=== PATIENT | female | born 1990 | race Caucasian/White ===

== ENCOUNTER 2017-09-15 10:55 | Emergency (ER) | payer BC ==
[2017-09-15] MEDS ORDERED: Ketorolac 30 MG/ML SDV IVPUSH ONE (11:59)
[2017-09-15] MEDS ORDERED: diphenhydrAMINE 50 MG/ML SDV IVPUSH ONE (11:59)
[2017-09-15] MEDS ORDERED: Metoclopramide 10 MG/2 ML SDV IV ONE (11:59)
[2017-09-15] MEDS ORDERED: Ondansetron 4 MG/2 ML SDV IVPUSH ONE (11:59)
--- NOTE | 2017-09-15 11:59 | EDM.PDOC ---
ED HPI GENERAL MEDICAL PROBLEM - General Chief Complaint: Headache Stated Complaint: HEADACHE Time Seen by Provider: 09/15/17 11:57 Source of Information: Reports: Patient History Limitations: Reports: No Limitations - History of Present Illness INITIAL COMMENTS - FREE TEXT/NARRATIVE: HISTORY AND PHYSICAL: History of present illness: Patient is a 27-year-old female who presents to the emergency room with complaints of a frontal migraine headache since 09/12/2017. She states she has taken multiple [id number] products and used the chiropractor to help alleviate her symptoms, has had minimal short term relief. She denies any photophobia, noise sensitivity, nausea, vomiting or change in vision. She denies any recent head injury or trauma. Has no history of migraine headaches. Review of systems: As per history of present illness and below otherwise all systems reviewed and negative. Past medical history: As per history of present illness and as reviewed below otherwise noncontributory. Surgical history: As per history of present illness and as reviewed below otherwise noncontributory. Social history: No reported history of drug or alcohol abuse. Family history: As per history of present illness and as reviewed below otherwise noncontributory. Physical exam: General: Well-developed and well-nourished 27-year-old female. Alert and oriented. Nontoxic appearing and in no acute distress. Will do speak in full sentences without shortness of breath. HEENT: Atraumatic, normocephalic, pupils reactive, negative for conjunctival pallor or scleral icterus, tympanic membranes normal bilaterally, mucous membranes moist, throat clear, neck supple, nontender, trachea midline. Meningeal signs. No trismus or drooling. Lungs: Clear to auscultation, breath sounds equal bilaterally, chest nontender. Heart: S1S2, regular rate and rhythm Abdomen: Soft, nondistended, nontender. Negative for masses or hepatosplenomegaly. Negative for costovertebral tenderness. Pelvis: Stable nontender. Genitourinary: Deferred. Rectal: Deferred. Extremities: Atraumatic, moves all extremities per self, negative for cords or calf pain. Neurovascular unremarkable. Neuro: Awake, alert, oriented. Cranial nerves II through XII unremarkable. Cerebellum unremarkable. Motor and sensory unremarkable throughout. Exam nonfocal. Patient describes her headache as a dull and nagging headache. She denies any trauma or head injuries. She does have her significant other at the bedside. We' ll give the patient some IV medications with discharge to home pending. Diagnostics: N/A Therapeutics: Benadryl, Toradol, Reglan, Zofran, normal saline Impression: Migraine headache Plan: 1. Please take the rest of the day to rest in a quiet dark room. He may use over -the-counter migraine medications if desired. 2. Please follow-up with her primary caregiver in the next 1-2 days. Return to the ED as needed and as discussed. Definitive disposition and diagnosis as appropriate pending reevaluation and review of above. Duration: Day(s): Location: Reports: Head Frontal Headache Pain Score (Numeric/FACES): 6 - Related Data Allergies Allergy/AdvReac Type Severity Reaction Status Date / Time No Known Allergies Allergy Verified 09/15/17 13:15 Home Meds: Home Meds Insulin Aspart [NovoLOG] 0 unit SUBCUT TIDAC #1 pen 03/11/15 [Rx] Social & Family History - Tobacco Use Smoking Status *Q: Unknown Ever Smoked - Alcohol Use Days Per Week of Alcohol Use: 5 Number of Drinks Per Day: 2 Total Drinks Per Week: 10 - Recreational Drug Use Recreational Drug Use: No ED ROS GENERAL - Review of Systems Review Of Systems: ROS reveals no pertinent complaints other than HPI. - Physical Exam Exam: See Below (See dictation) Course - Vital Signs Last Recorded V/S: Last Vital Signs Temp 98.3 F 09/15/17 12:42 Pulse 93 09/15/17 12:42 Resp 16 09/15/17 12:42 BP 135/93 H 09/15/17 12:42 Pulse Ox 100 09/15/17 12:42 - Orders/Labs/Meds Orders: Active Orders 24 hr Category Date Time Status Sodium Chloride 0.9% [Normal Saline] 500 ml Med 09/15/17 12:00 Active IV STAT Medication Orders Sodium Chloride (Normal Saline) 500 mls @ 999 mls/hr IV STAT JANA Last Admin: 09/15/17 12:41 Dose: 999 mls/hr Meds: Medications Generic Name Dose Route Start Last Admin Trade Name Freq PRN Reason Stop Dose Admin Sodium Chloride 500 mls @ 999 mls/hr 09/15/17 12:00 09/15/17 12:41 Normal Saline IV 999 mls/hr STAT JANA Administration Discontinued Medications Generic Name Dose Route Start Last Admin Trade Name Hugo PRN Reason Stop Dose Admin Diphenhydramine HCl 50 mg 09/15/17 11:59 09/15/17 12:47 Benadryl IVPUSH 09/15/17 12:00 50 mg ONETIME ONE Administration Ketorolac Tromethamine 30 mg 09/15/17 11:59 09/15/17 12:47 Toradol IVPUSH 09/15/17 12:00 30 mg ONETIME ONE Administration Metoclopramide HCl 10 mg 09/15/17 11:59 09/15/17 12:47 Reglan IV 09/15/17 12:00 10 mg ONETIME ONE Administration Ondansetron HCl 4 mg 09/15/17 11:59 09/15/17 12:47 Zofran IVPUSH 09/15/17 12:00 4 mg ONETIME ONE Administration Departure - Departure Time of Disposition: 13:05 Disposition: Home, Self-Care 01 Clinical Impression: Migraine - Discharge Information Instructions: Migraine Headache, [id number] Referrals: PCP,None [Primary Care Provider] - Forms: ED Department Discharge Additional Instructions: My general discharge The following information is given to patients seen in the emergency department who are being discharged to home. This information is to outline your options for follow-up care. We provide all patients seen in our emergency department with a follow-up referral. The need for follow-up, as well as the timing and circumstances, are variable depending upon the specifics of your emergency department visit. If you don't have a primary care physician on staff, we will provide you with a referral. We always advise you to contact your personal physician following an emergency department visit to inform them of the circumstance of the visit and for follow-up with them and/or the need for any referrals to a consulting specialist. The emergency department will also refer you to a specialist when appropriate. This referral assures that you have the opportunity for follow-up care with a specialist. All of these measure are taken in an effort to provide you with optimal care, which includes your follow-up. Under all circumstances we always encourage you to contact your private physician who remains a resource for coordinating your care. When calling for follow-up care, please make the office aware that this follow-up is from your recent emergency room visit. If for any reason you are refused follow-up, please contact the [facility] Emergency Department at and asked to speak to the emergency department charge nurse. [facility] [address] [place] [id number] 1. Please take the rest of the day to rest in a quiet dark room. He may use over -the-counter migraine medications if desired. 2. Please follow-up with her primary caregiver in the next 1-2 days. Return to the ED as needed and as discussed. - My Orders Last 24 Hours: My Active Orders 09/15/17 12:00 Sodium Chloride 0.9% [Normal Saline] 500 ml IV STAT - Assessment/Plan Last 24 Hours: My Active Orders 09/15/17 12:00 Sodium Chloride 0.9% [Normal Saline] 500 ml IV STAT
[2017-09-15] MEDS ORDERED: Sodium Chloride 0.9% 500 ML IV SCH (12:00)
[2017-09-15 13:49] VITALS: BP 125/78
== END 2017-09-15 13:48 | disposition home or self-care (01) ==
LOC: MW.ED 10:55
DX: G43.909 Migraine, unspecified, not intractable, without status migrainosus (principal)
CPT/HCPCS: 96361; 96374; 96375; 99284; J1200; J1885; J2405; J2765; J7040; 99283

== ENCOUNTER 2018-12-25 15:58 | Inpatient (IN) | payer OTHER ==
[2018-12-25] MEDS ORDERED: Butorphanol 1 MG/ML SDV IVPUSH PRN (16:15)
[2018-12-25] MEDS ORDERED: Sodium Chloride 0.9% 2.5 ML Syringe FLUSH PRN (16:15)
[2018-12-25] MEDS ORDERED: Sodium Chloride 0.9% 10 ML Syringe FLUSH PRN (16:15)
[2018-12-25] MEDS ORDERED: Oxytocin/0.9 % Sodium Chloride 30 UNIT/500 ML BAG IV SCH ×2 (16:15→17:15)
[2018-12-25] MEDS ORDERED: Sodium Chloride 0.9% 10 ML SDV IV PRN (16:15)
[2018-12-25] MEDS ORDERED: Methylergonovine 0.2 MG/1 ML Amp IM PRN (16:15)
[2018-12-25] MEDS ORDERED: Tranexamic Acid 1,000 MG in Sodium Chloride 0.9% 100 ML IV PRN (16:15)
[2018-12-25] MEDS ORDERED: Lidocaine 1% 50 ML MDV INJECT PRN (16:15)
[2018-12-25] MEDS ORDERED: Misoprostol 200 MCG Tab PO PRN (16:15)
[2018-12-25] MEDS ORDERED: Nalbuphine 10 MG/1 ML Vial IVPUSH PRN (16:15)
[2018-12-25] MEDS ORDERED: Water For Irrigation,Sterile 1,000 ML Container IRR PRN (16:15)
[2018-12-25] MEDS ORDERED: Ampicillin 2 GM in Sodium Chloride 0.9% 100 ML IV ONE (16:15)
[2018-12-25] MEDS ORDERED: Carboprost Tromethamine 250 MCG/1 ML Amp IM PRN (16:15)
[2018-12-25] MEDS: Lactated Ringers 1,000 ML IV SCH (17:00)
[2018-12-25] MEDS ORDERED: Terbutaline 1 MG/ML SDV SUBCUT PRN (17:09)
[2018-12-25] MEDS ORDERED: Misoprostol 25 MCG (1/4 of 100 MCG) Tab VAG PRN ×3 (17:09→23:00)
[2018-12-25] MEDS ORDERED: Dextrose 5% in Water 1,000 ML IV SCH (17:15)
[2018-12-25] MEDS: Ampicillin 1 GM in Sodium Chloride 0.9% 50 ML IV SCH (21:53)
[2018-12-25] MEDS ORDERED: Ampicillin 1 GM in Sodium Chloride 0.9% 50 ML IV SCH (22:00)
[2018-12-26] MEDS: Ampicillin 1 GM in Sodium Chloride 0.9% 50 ML IV SCH ×2 (03:15→07:42)
[2018-12-26] MEDS ORDERED: Lidocaine HCl/EPINEPHrine 5 ML IJ ONE (05:29)
[2018-12-26] MEDS: Lactated Ringers 1,000 ML IV SCH (05:32)
[2018-12-26] MEDS ORDERED: Lanolin 100% Cream 7 GM Tube TOP PRN (09:26)
[2018-12-26] MEDS ORDERED: Acetaminophen 500 MG Tab PO PRN ×2 (09:26)
[2018-12-26] MEDS ORDERED: Benzocaine/Menthol 20%-0.5% Spray 78 GM Cannister TOP PRN (09:26)
[2018-12-26] MEDS ORDERED: Witch Hazel Medicated Pads 40/Jar TOP PRN (09:26)
[2018-12-26] MEDS ORDERED: Bisacodyl 10 MG Supp RECTAL PRN (09:26)
[2018-12-26] MEDS ORDERED: Ibuprofen 400 MG Tab PO PRN (09:26)
[2018-12-26] MEDS ORDERED: oxyCODONE 5 MG Tab PO PRN (09:26)
--- NOTE | 2018-12-26 09:32 | PCM.DEL ---
L & D Note - General Info Date of Service: 12/26/18 Mother's Due Date: [birth year]19 - Delivery Note Cervical Ripening Method: Misoprostil Delivery Outcome: Livebirth Infant Delivery Method: Spontaneous Vaginal Delivery-Single Presentation: Left Occiput Anterior (KRISTAL) Nuchal Cord: Present, Reduced Prep: Other Anesthesia Type: Epidural Amniotic Fluid Description: Clear Episiotomy Type: None Laceration: 2nd Degree, Sulcus (left) Suture type: Vicryl Suture size: 3-0 Placenta: Intact, Spontaneous Cord: 3 Vessels Estimated Blood Loss: 200 Resuscitation Needed: No : Suctioned Score 1 min: 8 Score 5 min: 9 Delivery Comments (Free Text/Narrative):: female - General Info Date of Service: 12/26/18 - Patient Data Weight - Most Recent: 86.636 kg Lab Results Last 24 Hours: Laboratory Results - last 24 hr 12/25/18 12/25/18 12/25/18 Range/Units 16:28 16:28 17:40 WBC 5.96 (4.0-11.0) K/uL RBC 4.04 L (4.30-5.90) M/uL Hgb 11.0 L (12.0-16.0) g/dL Hct 33.9 L (36.0-46.0) % MCV 83.9 (80.0-98.0) fL MCH 27.2 (27.0-32.0) pg MCHC 32.4 (31.0-37.0) g/dL RDW Std Deviation 40.7 (28.0-62.0) fl RDW Coeff of [place] 14 (11.0-15.0) % Plt Count 175 (150-400) K/uL MPV 11.70 (7.40-12.00) fL Nucleated RBC % 0.0 /100WBC Nucleated RBCs # 0 K/uL POC Glucose 70 (60-110) mg/dL Blood Type O NEGATIVE Antibody Screen POSITIVE Antibody Identification Anti-D 12/25/18 12/25/18 12/26/18 Range/Units 19:18 21:31 00:27 WBC (4.0-11.0) K/uL RBC (4.30-5.90) M/uL Hgb (12.0-16.0) g/dL Hct (36.0-46.0) % MCV (80.0-98.0) fL MCH (27.0-32.0) pg MCHC (31.0-37.0) g/dL RDW Std Deviation (28.0-62.0) fl RDW Coeff of [place] (11.0-15.0) % Plt Count (150-400) K/uL MPV (7.40-12.00) fL Nucleated RBC % /100WBC Nucleated RBCs # K/uL POC Glucose 51 L 125 H 61 (60-110) mg/dL Blood Type Antibody Screen Antibody Identification 12/26/18 12/26/18 12/26/18 Range/Units 02:08 03:21 05:09 WBC (4.0-11.0) K/uL RBC (4.30-5.90) M/uL Hgb (12.0-16.0) g/dL Hct (36.0-46.0) % MCV (80.0-98.0) fL MCH (27.0-32.0) pg MCHC (31.0-37.0) g/dL RDW Std Deviation (28.0-62.0) fl RDW Coeff of [place] (11.0-15.0) % Plt Count (150-400) K/uL MPV (7.40-12.00) fL Nucleated RBC % /100WBC Nucleated RBCs # K/uL POC Glucose 64 74 127 H (60-110) mg/dL Blood Type Antibody Screen Antibody Identification 12/26/18 12/26/18 12/26/18 Range/Units 06:26 07:08 08:06 WBC (4.0-11.0) K/uL RBC (4.30-5.90) M/uL Hgb (12.0-16.0) g/dL Hct (36.0-46.0) % MCV (80.0-98.0) fL MCH (27.0-32.0) pg MCHC (31.0-37.0) g/dL RDW Std Deviation (28.0-62.0) fl RDW Coeff of [place] (11.0-15.0) % Plt Count (150-400) K/uL MPV (7.40-12.00) fL Nucleated RBC % /100WBC Nucleated RBCs # K/uL POC Glucose 171 H 183 H 186 H (60-110) mg/dL Blood Type Antibody Screen Antibody Identification 12/26/18 Range/Units 09:17 WBC (4.0-11.0) K/uL RBC (4.30-5.90) M/uL Hgb (12.0-16.0) g/dL Hct (36.0-46.0) % MCV (80.0-98.0) fL MCH (27.0-32.0) pg MCHC (31.0-37.0) g/dL RDW Std Deviation (28.0-62.0) fl RDW Coeff of [place] (11.0-15.0) % Plt Count (150-400) K/uL MPV (7.40-12.00) fL Nucleated RBC % /100WBC Nucleated RBCs # K/uL POC Glucose 173 H (60-110) mg/dL Blood Type Antibody Screen Antibody Identification Med Orders - Current: Current Medications Butorphanol Tartrate (Stadol) 1 mg IVPUSH Q1H PRN PRN Reason: Pain Last Admin: 12/26/18 04:40 Dose: 1 mg Carboprost Tromethamine (Hemabate Ds) 250 mcg IM ASDIRECTED PRN PRN Reason: Post Hemorrhage Lactated Ringer's (Ringers, Lactated) 1,000 mls @ 150 mls/hr IV ASDIRECTED JANA Last Admin: 12/26/18 05:32 Dose: 500 mls/hr Oxytocin/Sodium Chloride (Oxytocin 30 Unit/500 Ml-Ns) 30 unit in 500 mls @ 500 mls/hr IV TITRATE JANA Tranexamic Acid 1,000 mg/ (Sodium Chloride) 110 mls @ 660 mls/hr IV ONETIME PRN PRN Reason: Bleeding Oxytocin/Sodium Chloride (Oxytocin 30 Unit/500 Ml-Ns) 30 unit in 500 mls @ 2 mls/hr IV TITRATE JANA; Protocol Insulin Human Regular 100 unit (/ Sodium Chloride) 100 mls @ 0.5 mls/hr IV TITRATE JANA; Protocol Dextrose/Water (Dextrose 5% In Water) 1,000 mls @ 100 mls/hr IV ASDIRECTED JANA Ampicillin Sodium 1 gm/ Sodium (Chloride) 50 mls @ 100 mls/hr IV Q4H JANA Last Admin: 12/26/18 07:42 Dose: 100 mls/hr Lidocaine HCl (Xylocaine 1%) 50 ml INJECT ONETIME PRN PRN Reason: Laceration repair Methylergonovine Maleate (Methergine) 0.2 mg IM ASDIRECTED PRN PRN Reason: Post Hemorrhage Misoprostol (Cytotec) 200 mcg PO ONETIME PRN PRN Reason: Post Hemorrhage Misoprostol (Cytotec) 25 mcg VAG ONETIME PRN PRN Reason: Cervical Ripening Last Admin: 12/25/18 17:25 Dose: 25 mcg Misoprostol (Cytotec) 25 mcg VAG Q6H PRN PRN Reason: Cervical Ripening Last Admin: 12/25/18 23:27 Dose: 25 mcg Nalbuphine HCl (Nubain) 10 mg IVPUSH Q1H PRN PRN Reason: Pain (severe 7-10) Sodium Chloride (Saline Flush) 10 ml FLUSH ASDIRECTED PRN PRN Reason: Keep Vein Open Sodium Chloride (Saline Flush) 2.5 ml FLUSH ASDIRECTED PRN PRN Reason: Keep Vein Open Sodium Chloride (Normal Saline) 10 ml IV ASDIRECTED PRN PRN Reason: IV Use Sterile Water (Sterile Water For Irrigation) 1,000 ml IRR ASDIRECTED PRN PRN Reason: delivery Terbutaline Sulfate (Brethine) 0.25 mg SUBCUT ASDIRECTED PRN PRN Reason: Tacysystole Discontinued Medications Ampicillin Sodium 2 gm/ Sodium (Chloride) 100 mls @ 200 mls/hr IV ONETIME ONE Stop: 12/25/18 16:44 Last Admin: 12/25/18 17:00 Dose: 200 mls/hr Ampicillin Sodium 1 gm/ Sodium (Chloride) 50 mls @ 100 mls/hr IV Q6H [facility] Fentanyl/Bupivacaine HCl (Yoaqyoxj-[id number]-Wv 2 Mcg/Ml-0.125%) Confirm Administered Dose 100 mls @ as directed .ROUTE .STK-MED ONE Stop: 12/26/18 05:30 Lidocaine/Epinephrine (Lidocaine 1.5%-Epi 1:200,000) Confirm Administered Dose 5 ml IJ .STK-MED ONE Stop: 12/26/18 05:30 - Problem List & Annotations (1) Type 1 diabetes mellitus during SNOMED Code(s): 446369768 Code(s): O24.019 - PRE-EXIST TYPE 1 DIABETES, IN , UNSP TRIMESTER Status: Acute Current Visit: Yes (2) Vaginal delivery SNOMED Code(s): 997631115 Code(s): O80 - ENCOUNTER FOR FULL-TERM UNCOMPLICATED DELIVERY Status: Acute Current Visit: Yes - Problem List Review Problem List Initiated/Reviewed/Updated: Yes - My Orders Last 24 Hours: My Active Orders 12/25/18 16:15 Patient Status [ADT] Routine May Shower [RC] ASDIRECTED Notify Provider [RC] PRN Up ad Shauna [RC] ASDIRECTED Vital Signs [RC] PER UNIT ROUTINE Butorphanol [Stadol] 1 mg IVPUSH Q1H PRN Carboprost Tromethamine [Hemabate DS] 250 mcg IM ASDIRECTED PRN Lactated Ringers [Ringers, Lactated] 1,000 ml IV ASDIRECTED Lidocaine 1% [Xylocaine 1%] 50 ml INJECT ONETIME PRN Methylergonovine [Methergine] 0.2 mg IM ASDIRECTED PRN Nalbuphine [Nubain] 10 mg IVPUSH Q1H PRN Oxytocin/0.9 % Sodium Chloride [Oxytocin 30 Unit/500 ML-NS] 30 unit in 500 ml IV TITRATE Sodium Chloride 0.9% [Normal Saline] 10 ml IV ASDIRECTED PRN Sodium Chloride 0.9% [Saline Flush] 10 ml FLUSH ASDIRECTED PRN Sodium Chloride 0.9% [Saline Flush] 2.5 ml FLUSH ASDIRECTED PRN Tranexamic Acid [Cyklokapron] 1,000 mg Sodium Chloride 0.9% [Normal Saline] 100 ml IV ONETIME Water For Irrigation,Sterile [Sterile Water for Irrigation] 1,000 ml IRR ASDIRECTED PRN miSOPROStol [Cytotec] 200 mcg PO ONETIME PRN Scalp Electrode [WOMSER] Per Unit Routine Peripheral IV Insertion Adult [OM.PC] Routine Resuscitation Status Routine 12/25/18 17:09 Terbutaline [Brethine] 0.25 mg SUBCUT ASDIRECTED PRN miSOPROStol [Cytotec] 25 mcg VAG ONETIME PRN 12/25/18 17:10 Bedrest Bathroom Privileges [RC] ASDIRECTED Communication Order [RC] ASDIRECTED Communication Order [RC] ASDIRECTED Communication Order [RC] ASDIRECTED Notify Provider [RC] PRN Notify Provider [RC] PRN Notify Provider [RC] STAT 12/25/18 17:15 Dextrose 5% in Water 1,000 ml IV ASDIRECTED Insulin Regular, Human [NovoLIN R] 100 unit Sodium Chloride 0.9% [Normal Saline] 99 ml IV TITRATE Oxytocin/0.9 % Sodium Chloride [Oxytocin 30 Unit/500 ML-NS] 30 unit in 500 ml IV TITRATE Medication Administration Instruction [OM.PC] Q3H 12/25/18 22:00 Ampicillin 1 gm Sodium Chloride 0.9% [Normal Saline] 50 ml IV Q4H 12/25/18 23:00 miSOPROStol [Cytotec] 25 mcg VAG Q6H PRN 12/26/18 08:20 BLOOD GAS ARTERIAL UMBILICAL [BG] Urgent BLOOD GAS VENOUS UMBILICAL [BG] Urgent 12/26/18 09:26 Acetaminophen [Tylenol Extra Strength] 1,000 mg PO Q4H PRN Acetaminophen [Tylenol Extra Strength] 500 mg PO Q4H PRN Benzocaine/Menthol [Dermoplast Pain Relief 20%-0.5% [place]] 78 gm TOP ASDIRECTED PRN Bisacodyl [Dulcolax] 10 mg RECTAL ONETIME PRN Docusate Sodium [Colace] 100 mg PO BID PRN Ibuprofen [Motrin] 400 mg PO Q4H PRN Ibuprofen [Motrin] 800 mg PO Q6H PRN Lanolin [Lansinoh HPA] See Dose Instructions TOP ASDIRECTED PRN Witch Juju [Tucks] 1 pad TOP ASDIRECTED PRN oxyCODONE 5 mg PO Q2H PRN 12/26/18 09:27 May Shower [RC] ASDIRECTED Up ad Shauna [RC] ASDIRECTED Vital Signs [RC] PER UNIT ROUTINE Assess Lochia [WOMSER] Per Unit Routine Assess Uterine Involution [WOMSER] Per Unit Routine Ice Therapy [OM.PC] Per Unit Routine Perineal Care [OM.PC] Per Unit Routine Peripheral IV Discontinue [OM.PC] Routine 12/26/18 09:29 RHIG WORKUP, [BBK] Routine 12/26/18 Lunch Regular Diet [DIET] 12/27/18 05:11 HEMOGLOBIN/HEMATOCRIT,HH [HEME] Timed
[2018-12-26] MEDS: Ibuprofen 800 MG Tab PO PRN ×2 (12:34→19:32)
[2018-12-26] MEDS: Docusate Sodium 100 MG Cap PO PRN (21:04)
[2018-12-27] MEDS: Ibuprofen 800 MG Tab PO PRN (06:54)
[2018-12-27 07:32] VITALS: BP 129/77
--- NOTE | 2018-12-27 08:14 | PCM.PNPP ---
- General Info Date of Service: 12/27/18 Functional Status: Reports: Pain Controlled, Tolerating Diet, Ambulating, Urinating - Review of Systems General: Reports: No Symptoms HEENT: Reports: No Symptoms Pulmonary: Reports: No Symptoms Cardiovascular: Reports: No Symptoms Gastrointestinal: Reports: No Symptoms Genitourinary: Reports: No Symptoms Musculoskeletal: Reports: No Symptoms Skin: Reports: No Symptoms Neurological: Reports: No Symptoms Psychiatric: Reports: No Symptoms - Patient Data Vital Signs - Most Recent: Last Vital Signs Temp 36.9 C 12/27/18 07:30 Pulse 71 12/27/18 07:30 Resp 16 12/27/18 07:30 BP 129/77 12/27/18 07:30 Pulse Ox 98 12/27/18 07:30 Weight - Most Recent: 86.636 kg I&O - Last 24 Hours: Intake & Output 12/26/18 12/27/18 12/27/18 22:59 06:59 14:59 Intake Total 2 Balance 2 Lab Results - Last 24 Hours: Laboratory Results - last 24 hr 12/26/18 12/26/18 12/26/18 Range/Units 08:06 08:37 09:17 Hgb (12.0-16.0) g/dL Hct (36.0-46.0) % Cord ABG pH 7.109 L (7.18-7.38) Cord ABG Base Excess -9 (-10--2) Cord VBG pH 7.227 L (7.25-7.45) Cord VBG Base Excess -6 (-10--2) POC Glucose 186 H 173 H (60-110) mg/dL Screen (NEGATIVE) RhIG Candidate? Rhogam Indicated 12/26/18 12/26/18 12/26/18 Range/Units 09:48 10:22 12:10 Hgb (12.0-16.0) g/dL Hct (36.0-46.0) % Cord ABG pH (7.18-7.38) Cord ABG Base Excess (-10--2) Cord VBG pH (7.25-7.45) Cord VBG Base Excess (-10--2) POC Glucose 194 H 202 H (60-110) mg/dL Screen NEGATIVE (NEGATIVE) RhIG Candidate? YES Rhogam Indicated YES, BABY RH POS H 12/26/18 12/26/18 12/26/18 Range/Units 13:32 14:07 16:11 Hgb (12.0-16.0) g/dL Hct (36.0-46.0) % Cord ABG pH (7.18-7.38) Cord ABG Base Excess (-10--2) Cord VBG pH (7.25-7.45) Cord VBG Base Excess (-10--2) POC Glucose 240 H 227 H 111 H (60-110) mg/dL Screen (NEGATIVE) RhIG Candidate? Rhogam Indicated 12/26/18 12/26/18 12/27/18 Range/Units 18:03 20:10 00:05 Hgb (12.0-16.0) g/dL Hct (36.0-46.0) % Cord ABG pH (7.18-7.38) Cord ABG Base Excess (-10--2) Cord VBG pH (7.25-7.45) Cord VBG Base Excess (-10--2) POC Glucose 76 126 H 52 L (60-110) mg/dL Screen (NEGATIVE) RhIG Candidate? Rhogam Indicated 12/27/18 12/27/18 12/27/18 Range/Units 01:14 03:12 04:50 Hgb 9.2 L (12.0-16.0) g/dL Hct 28.2 L (36.0-46.0) % Cord ABG pH (7.18-7.38) Cord ABG Base Excess (-10--2) Cord VBG pH (7.25-7.45) Cord VBG Base Excess (-10--2) POC Glucose 76 81 (60-110) mg/dL Screen (NEGATIVE) RhIG Candidate? Rhogam Indicated 12/27/18 12/27/18 Range/Units 06:58 08:07 Hgb (12.0-16.0) g/dL Hct (36.0-46.0) % Cord ABG pH (7.18-7.38) Cord ABG Base Excess (-10--2) Cord VBG pH (7.25-7.45) Cord VBG Base Excess (-10--2) POC Glucose 57 L 65 (60-110) mg/dL Screen (NEGATIVE) RhIG Candidate? Rhogam Indicated Med Orders - Current: Current Medications Acetaminophen (Tylenol Extra Strength) 500 mg PO Q4H PRN PRN Reason: Pain Acetaminophen (Tylenol Extra Strength) 1,000 mg PO Q4H PRN PRN Reason: Pain Benzocaine/Menthol (Dermoplast Pain Relief 20%-0.5% [place]) 78 gm TOP ASDIRECTED PRN PRN Reason: Perineal Comfort Measure Last Admin: 12/26/18 17:02 Dose: 1 canister Bisacodyl (Dulcolax) 10 mg RECTAL ONETIME PRN PRN Reason: Constipation Butorphanol Tartrate (Stadol) 1 mg IVPUSH Q1H PRN PRN Reason: Pain Last Admin: 12/26/18 04:40 Dose: 1 mg Carboprost Tromethamine (Hemabate Ds) 250 mcg IM ASDIRECTED PRN PRN Reason: Post Hemorrhage Docusate Sodium (Colace) 100 mg PO BID PRN PRN Reason: Constipation Last Admin: 12/26/18 21:04 Dose: 100 mg Emollient Ointment (Lansinoh Hpa) 0 gm TOP ASDIRECTED PRN PRN Reason: Sore Nipples Lactated Ringer's (Ringers, Lactated) 1,000 mls @ 150 mls/hr IV ASDIRECTED JANA Last Admin: 12/26/18 05:32 Dose: 500 mls/hr Oxytocin/Sodium Chloride (Oxytocin 30 Unit/500 Ml-Ns) 30 unit in 500 mls @ 500 mls/hr IV TITRATE JANA Last Admin: 12/26/18 08:38 Dose: 500 mls/hr Tranexamic Acid 1,000 mg/ (Sodium Chloride) 110 mls @ 660 mls/hr IV ONETIME PRN PRN Reason: Bleeding Oxytocin/Sodium Chloride (Oxytocin 30 Unit/500 Ml-Ns) 30 unit in 500 mls @ 2 mls/hr IV TITRATE JANA; Protocol Insulin Human Regular 100 unit (/ Sodium Chloride) 100 mls @ 0.5 mls/hr IV TITRATE JANA; Protocol Dextrose/Water (Dextrose 5% In Water) 1,000 mls @ 100 mls/hr IV ASDIRECTED JANA Ibuprofen (Motrin) 400 mg PO Q4H PRN PRN Reason: Pain Ibuprofen (Motrin) 800 mg PO Q6H PRN PRN Reason: Pain Last Admin: 12/27/18 06:54 Dose: 800 mg Lidocaine HCl (Xylocaine 1%) 50 ml INJECT ONETIME PRN PRN Reason: Laceration repair Methylergonovine Maleate (Methergine) 0.2 mg IM ASDIRECTED PRN PRN Reason: Post Hemorrhage Misoprostol (Cytotec) 200 mcg PO ONETIME PRN PRN Reason: Post Hemorrhage Misoprostol (Cytotec) 25 mcg VAG ONETIME PRN PRN Reason: Cervical Ripening Last Admin: 12/25/18 17:25 Dose: 25 mcg Misoprostol (Cytotec) 25 mcg VAG Q6H PRN PRN Reason: Cervical Ripening Last Admin: 12/25/18 23:27 Dose: 25 mcg Nalbuphine HCl (Nubain) 10 mg IVPUSH Q1H PRN PRN Reason: Pain (severe 7-10) Oxycodone HCl (Oxycodone) 5 mg PO Q2H PRN PRN Reason: Pain Sodium Chloride (Saline Flush) 10 ml FLUSH ASDIRECTED PRN PRN Reason: Keep Vein Open Sodium Chloride (Saline Flush) 2.5 ml FLUSH ASDIRECTED PRN PRN Reason: Keep Vein Open Last Admin: 12/26/18 09:55 Dose: 2.5 ml Sodium Chloride (Normal Saline) 10 ml IV ASDIRECTED PRN PRN Reason: IV Use Sterile Water (Sterile Water For Irrigation) 1,000 ml IRR ASDIRECTED PRN PRN Reason: delivery Last Admin: 12/26/18 10:17 Dose: 1,000 ml Terbutaline Sulfate (Brethine) 0.25 mg SUBCUT ASDIRECTED PRN PRN Reason: Tacysystole Witch Juju (Tucks) 1 pad TOP ASDIRECTED PRN PRN Reason: comfort care Last Admin: 12/26/18 17:01 Dose: 1 carton Discontinued Medications Ampicillin Sodium 2 gm/ Sodium (Chloride) 100 mls @ 200 mls/hr IV ONETIME ONE Stop: 12/25/18 16:44 Last Admin: 12/25/18 17:00 Dose: 200 mls/hr Ampicillin Sodium 1 gm/ Sodium (Chloride) 50 mls @ 100 mls/hr IV Q6H JANA Ampicillin Sodium 1 gm/ Sodium (Chloride) 50 mls @ 100 mls/hr IV Q4H JANA Last Admin: 12/26/18 07:42 Dose: 100 mls/hr Fentanyl/Bupivacaine HCl (Vqwilyop-Aattq-Ta 2 Mcg/Ml-0.125%) Confirm Administered Dose 100 mls @ as directed .ROUTE .STK-MED ONE Stop: 12/26/18 05:30 Lidocaine/Epinephrine (Lidocaine 1.5%-Epi 1:200,000) Confirm Administered Dose 5 ml IJ .STK-MED ONE Stop: 12/26/18 05:30 - Infant Interaction Disposition, : [place] in Room with Family Infant Interaction: Holding Infant Feeding: Breastfed Infant; Nursed Well Support Person: Mother, Significant Other - Recovery Exam Fundal Tone: Firm Fundal Level: At Umbilicus Fundal Placement: Midline Lochia Amount: Scant Lochia Color: Rubra/Red Perineum Description: Edematous, Hemorrhoids, Other (see below) Other Perinuem Description: second degree and sulcus tear Episiotomy/Laceration: Approximated Bladder Status: Voiding Urinary Elimination: Voided Other Urinary Elimination, : unable to void - Exam General: Alert, Oriented HEENT: Pupils Equal Neck: Supple Lungs: Normal Respiratory Effort GI/Abdominal Exam: Soft, Non-Tender, No Organomegaly, No Distention, Pelvis Stable Extremities: Normal Inspection, Non-Tender. No: No Pedal Edema (1+) Skin: Warm, Dry, Intact Psy/Mental Status: Alert, Normal Affect, Normal Mood - Problem List & Annotations (1) Type 1 diabetes mellitus during SNOMED Code(s): 496136210 Code(s): O24.019 - PRE-EXIST TYPE 1 DIABETES, IN , UNSP TRIMESTER Status: Acute Current Visit: Yes (2) Vaginal delivery SNOMED Code(s): 664758221 Code(s): O80 - ENCOUNTER FOR FULL-TERM UNCOMPLICATED DELIVERY Status: Acute Current Visit: Yes - Problem List Review Problem List Initiated/Reviewed/Updated: Yes - My Orders Last 24 Hours: My Active Orders 12/26/18 09:26 Acetaminophen [Tylenol Extra Strength] 1,000 mg PO Q4H PRN Acetaminophen [Tylenol Extra Strength] 500 mg PO Q4H PRN Benzocaine/Menthol [Dermoplast Pain Relief 20%-0.5% [place]] 78 gm TOP ASDIRECTED PRN Bisacodyl [Dulcolax] 10 mg RECTAL ONETIME PRN Docusate Sodium [Colace] 100 mg PO BID PRN Ibuprofen [Motrin] 400 mg PO Q4H PRN Ibuprofen [Motrin] 800 mg PO Q6H PRN Lanolin [Lansinoh HPA] See Dose Instructions TOP ASDIRECTED PRN [place] Juju [Tucks] 1 pad TOP ASDIRECTED PRN oxyCODONE 5 mg PO Q2H PRN 12/26/18 09:27 May Shower [RC] ASDIRECTED Up ad Shauna [RC] ASDIRECTED Vital Signs [RC] PER UNIT ROUTINE Assess Lochia [WOMSER] Per Unit Routine Assess Uterine Involution [WOMSER] Per Unit Routine Ice Therapy [OM.PC] Per Unit Routine Perineal Care [OM.PC] Per Unit Routine Peripheral IV Discontinue [OM.PC] Routine 12/26/18 Lunch Regular Diet [DIET] - Assessment Assessment:: PPD#1 after , stable, minimal lochia, pain well controlled. Tolerating diet. Glucose readings were low last night, she has reduced her basal rate on her pump (set at pre- settings.) - Plan Plan:: Dismiss to home today. She has follow up with PCP and will call ammunition officer if questions regarding pump settings. Discharge instructions reviewed.
[2018-12-27] MEDS: Docusate Sodium 100 MG Cap PO PRN (11:02)
--- NOTE | 2018-12-27 11:55 | OR ---
SURGEON: Shirley Cantrell M.D. DATE OF PROCEDURE: 12/26/2018 PREOPERATIVE DIAGNOSES: Thirty-nine week intrauterine and type 1 diabetes. POSTOPERATIVE DIAGNOSES: Thirty-nine week intrauterine and type 1 diabetes. PROCEDURE: 1. Cytotec induction of labor. 2. Term spontaneous vaginal delivery. 3. Repair of second-degree laceration. PRIMARY SURGEON: Shirley Cantrell M.D. ANESTHESIA: Epidural. ESTIMATED BLOOD LOSS: Less than 200 mL. FINDINGS: Live born female, score of 8 and 9. Placenta spontaneous, Schultze intact with 3-vessels. Left vaginal sulcus laceration and second-degree perineal laceration. COMPLICATIONS: None known. DISPOSITION: Stable to recovery. BRIEF HISTORY: This is a 28-year-old female, G1, P0. She presents for induction of labor with Cytotec. She is type 1 diabetic. She is managed on insulin pump. She is co- managed with the Maternal Medicine specialist. She has had otherwise uncomplicated care. Normal growth. Presents for induction of labor, initially fingertip and thick. Received 2 doses of Cytotec. She progressed to labor and she had category 1 with episodes of category 2 heart tones throughout labor. DESCRIPTION OF PROCEDURE: With the patient in dorsal lithotomy position, the patient pushed over a 10- minute time period to a 5+ station, at which time the head was delivered spontaneously and atraumatically over the perineum with support with subsequent delivery of the 's shoulders and body without any difficulty. The infant was bulb suctioned by nose and mouth. The cord was clamped x2 and cut. The infant was handed to the mother in the presence of the nurse attending delivery. The infant was a liveborn female, score of 8 and 9. Cord blood was collected for cord ABGs as well as routine cord blood sampling. Pitocin was initiated after delivery of the to assist with delivery of the placenta which was delivered spontaneously, Schultze intact with 3 vessels. Upon inspection of the pelvis and perineum, there were no periurethral, cervical, or rectal lacerations. Rectal exam was performed. Sphincter was intact. There was no extension into the rectal area. There was a left vaginal sulcal laceration that was repaired with a running lock suture of 3-0 Polysorb and the second-degree perineal laceration was repaired with a deep running suture of 3-0 Polysorb followed by a more superficial layer of a running suture of 3-0 Polysorb and a subcuticular suture of the same. Final sponge, needle, and instrument counts were correct. There were no known complications. Mother and baby are in LDR in good condition. CIARAN LOPEZ /[id number]
== END 2018-12-27 14:35 | disposition home or self-care (01) | DRG 807 ==
LOC: MW.OBCHECK 15:58 → MW.OB 16:15 → OBSVTOIN 12-27 11:15
PROVIDERS: ADMIT Obstetrics & Gynecology; ATTEND Obstetrics & Gynecology
PROC: 10E0XZZ Delivery of Products of Conception, External Approach (ICD-10-PCS; principal; 2018-12-27)
PROC: 0KQM0ZZ Repair Perineum Muscle, Open Approach (ICD-10-PCS; 2018-12-27)
PROC: 3E0P7VZ Introduction of Hormone into Female Reproductive, Via Natural or Artificial Opening (ICD-10-PCS; 2018-12-27)
PROC: 3E0R3BZ Introduction of Anesthetic Agent into Spinal Canal, Percutaneous Approach (ICD-10-PCS; 2018-12-27)
PROC: 00HU33Z Insertion of Infusion Device into Spinal Canal, Percutaneous Approach (ICD-10-PCS; 2018-12-27)
DX: O24.02 Pre-existing type 1 diabetes mellitus, in childbirth (principal); Z37.0 Single live birth; E10.8 Type 1 diabetes mellitus with unspecified complications; Z3A.38 38 weeks gestation of pregnancy; O70.1 Second degree perineal laceration during delivery; O69.81X0 Labor and delivery complicated by cord around neck, without compression, not applicable or unspecified
CPT/HCPCS: 36415; 51702; 59025; 59409; 82803; 82962; 85014; 85018; 85027; 85460; 86850; 86870; 86900; 86901; A9270-GY; J0290; J0595; J2590; J2792; J7030; J7050; J7120

== ENCOUNTER 2019-04-05 06:29 | Day surgery (SDC) | payer OTHER ==
--- NOTE | 2019-04-05 06:57 | PCM.PREANE ---
Preanesthetic Assessment - Anesthesia/Transfusion/Family Hx Anesthesia History: Prior Anesthesia Without Reaction Family History of Anesthesia Reaction: No Transfusion History: No Prior Transfusion(s) Intubation History: Unknown - Review of Systems General: No Symptoms Pulmonary: No Symptoms Cardiovascular: No Symptoms Gastrointestinal: No Symptoms Neurological: No Symptoms Other: Reports: None - Physical Assessment Vital Signs: Last Vital Signs Temp 36.4 C 04/05/19 06:51 Pulse 64 04/05/19 06:51 Resp 14 04/05/19 06:51 BP 107/62 04/05/19 06:51 Pulse Ox 98 04/05/19 06:51 Height: 5 ft 5.25 in Weight: 68.946 kg ASA Class: 2 Mental Status: Alert & Oriented x3 Dentition: Reports: Normal Dentition Thyro-Mental Finger Breadths: 3 Mouth Opening Finger Breadths: 3 ROM/Head Extension: Full Lungs: Clear to Auscultation, Normal Respiratory Effort Cardiovascular: Regular Rate, Regular Rhythm - Lab Values: Laboratory Last Values WBC 5.79 K/uL (4.0-11.0) 04/04/19 13:00 RBC 4.95 M/uL (4.30-5.90) 04/04/19 13:00 Hgb 14.0 g/dL (12.0-16.0) 04/04/19 13:00 Hct 41.3 % (36.0-46.0) 04/04/19 13:00 MCV 83.4 fL (80.0-98.0) 04/04/19 13:00 MCH 28.3 pg (27.0-32.0) 04/04/19 13:00 MCHC 33.9 g/dL (31.0-37.0) 04/04/19 13:00 RDW Std Deviation 42.2 fl (28.0-62.0) 04/04/19 13:00 RDW Coeff of [place] 14 % (11.0-15.0) 04/04/19 13:00 Plt Count 185 K/uL (150-400) 04/04/19 13:00 MPV 10.10 fL (7.40-12.00) 04/04/19 13:00 Nucleated RBC % 0.0 /100WBC 04/04/19 13:00 Nucleated RBCs # 0 K/uL 04/04/19 13:00 HCG, Quant < 1.0 mIU/mL 04/04/19 13:00 - Allergies Allergies/Adverse Reactions: Allergies Allergy/AdvReac Type Severity Reaction Status Date / Time avocado Allergy "itchy Verified 04/03/19 10:32 mouth" banana Allergy "itchy Verified 04/03/19 10:32 mouth" lettuce Allergy "itchy Verified 04/03/19 10:32 mouth" - Blood Blood Available: No - Anesthesia Plan Pre-Op Medication Ordered: None - Acknowledgements Anesthesia Type Planned: MAC Pt an Appropriate Candidate for the Planned Anesthesia: Yes Alternatives and Risks of Anesthesia Discussed w Pt/Guardian: Yes Pt/Guardian Understands and Agrees with Anesthesia Plan: Yes PreAnesthesia Questionnaire HEENT History: Reports: Impaired Vision, Other (See Below) Other HEENT History: wear glasses or contacts. Cardiovascular History: Reports: None Respiratory History: Reports: None Gastrointestinal History: Reports: None Genitourinary History: Reports: None [employer] MANAGER History: Reports: Musculoskeletal History: Reports: None Neurological History: Reports: Migraines Psychiatric History: Reports: None Endocrine/Metabolic History: Reports: Diabetes, Type I Hematologic History: Reports: None Immunologic History: Reports: None Oncologic (Cancer) History: Reports: None Dermatologic History: Reports: None - Infectious Disease History Infectious Disease History: Reports: Chicken Pox - Past Surgical History Head Surgeries/Procedures: Reports: None HEENT Surgical History: Reports: Tonsillectomy Cardiovascular Surgical History: Reports: None Respiratory Surgical History: Reports: None GI Surgical History: Reports: None Female Surgical History: Reports: None Endocrine Surgical History: Reports: None Neurological Surgical History: Reports: None Musculoskeletal Surgical History: Reports: None Oncologic Surgical History: Reports: None Dermatological Surgical History: Reports: None - SUBSTANCE USE Tobacco Use Within Last Twelve Months: Other (See Below) - HOME MEDS Home Medications: Home Meds Vits #93/Iron Fum/FA [ Formula Tablet] 1 each PO DAILY [History] Fiasp 1 dose IMPLANT ASDIRECTED 04/03/19 [History]
[2019-04-05] MEDS ORDERED: Lidocaine 2% 5 ML SDV ONE (07:01)
[2019-04-05] MEDS ORDERED: Propofol 200 MG/20 ML SDV ONE (07:02)
[2019-04-05] MEDS ORDERED: Midazolam 1 MG/ML 2 ML SDV ONE (07:02)
[2019-04-05] MEDS ORDERED: fentaNYL 100 MCG/2 ML SDV ONE (07:02)
[2019-04-05] MEDS ORDERED: 50% Dextrose in Water 50 ML Syringe IVPUSH PRN (07:38)
[2019-04-05] MEDS ORDERED: Albuterol 0.083% 2.5 MG/3 ML Neb Soln NEB PRN (07:38)
[2019-04-05] MEDS ORDERED: EPINEPHrine 1:10,000 1 MG/10 ML Syringe IVPUSH PRN (07:38)
[2019-04-05] MEDS ORDERED: fentaNYL 100 MCG/2 ML SDV IVPUSH PRN (07:38)
[2019-04-05] MEDS ORDERED: Atropine 0.1 MG/ML 10 ML Syringe IVPUSH PRN ×2 (07:38)
[2019-04-05] MEDS ORDERED: Naloxone 0.4 MG/ML Syringe IVPUSH PRN (07:38)
[2019-04-05] MEDS ORDERED: Glycopyrrolate 0.2 MG/ML SDV ONE ×2 (08:03→08:10)
--- NOTE | 2019-04-05 08:49 | PCM.OPNOTE ---
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 Ectocervix labeled at 12 o'clock position. 2. Endocervix open at 6 o'clock 3. Endocervical curettings Fluid Replacement, Intraop: 1,100 Output, Urine Amount: 50 EBL in mLs: 20 Complications: None known Condition: Good
--- NOTE | 2019-04-05 09:12 | PCM.POSTAN ---
POST ANESTHESIA ASSESSMENT - MENTAL STATUS Mental Status: Alert, Oriented - VITAL SIGNS Vital Signs: Last Vital Signs Temp 36.4 C 04/05/19 08:44 Pulse 71 04/05/19 09:04 Resp 13 04/05/19 09:04 BP 94/63 04/05/19 09:04 Pulse Ox 100 04/05/19 09:04 - RESPIRATORY Respiratory Status: Respiratory Rate WNL, Airway Patent, O2 Saturation Stable - CARDIOVASCULAR CV Status: Pulse Rate WNL, Blood Pressure Stable - GASTROINTESTINAL GI Status: No Symptoms - PAIN Pain Score: 0 - POST OP HYDRATION Hydration Status: Adequate & Stable - OBSERVATIONS Free Text/Narrative:: no anesthesia problems
--- NOTE | 2019-04-05 09:25 | PCM48HPAN ---
Post Anesthesia Note - EVALUATION WITHIN 48HRS OF ANESTHETIC Vital Signs in Normal Range: Yes Patient Participated in Evaluation: Yes Respiratory Function Stable: Yes Airway Patent: Yes Cardiovascular Function Stable: Yes Hydration Status Stable: Yes Pain Control Satisfactory: Yes Nausea and Vomiting Control Satisfactory: Yes Mental Status Recovered: Yes Vital Signs: Last Vital Signs Temp 36.4 C 04/05/19 08:44 Pulse 71 04/05/19 09:04 Resp 13 04/05/19 09:04 BP 94/63 04/05/19 09:04 Pulse Ox 100 04/05/19 09:04 - COMMENTS/OBSERVATIONS Free Text/Narrative:: no anesthesia problems
[2019-04-05 10:02] VITALS: BP 101/62; PULSE 82
--- NOTE | 2019-04-05 11:14 | OR ---
SURGEON: Shirley Cantrell M.D. DATE OF PROCEDURE: 04/05/2019 PREOPERATIVE DIAGNOSIS: Cervical intraepithelial neoplasia 2. POSTOPERATIVE DIAGNOSIS: Cervical intraepithelial neoplasia 2. PROCEDURE: Loop electrode excisional procedure. PRIMARY SURGEON: Shirley Cantrell M.D. CALL WORKER: MAXINE Jiménez. ANESTHESIA: MAC and cervical block. ESTIMATED BLOOD LOSS: 20 mL. COMPLICATIONS: None known. PATHOLOGY: Specimens are ectocervix labeled at 12 o'clock, endocervix open at 6 o'clock, and endocervical curettings. BRIEF HISTORY: This is a 28-year-old female. She presents with a persistent ASCUS Pap with positive HPV. Cervical biopsy on colposcopy in the clinic showed moderate dysplasia and it was recommended that she proceed with a loop electrode excisional procedure with risks discussed including bleeding, infection, injury to surrounding organs, risk of cervical incompetence with future pregnancies. Understanding these risks, she does desire to proceed. DESCRIPTION OF PROCEDURE: With the patient in dorsal lithotomy position, under adequate IV sedation, the bladder was drained with straight cath. A speculum was placed into the vagina. The cervix was inspected under white light and green light with the colposcope and then after acetic acid was applied, was reinspected with a finding of a lip of dense acetowhite epithelium at 10 o'clock and another area of acetowhite epithelium, which appeared to be peeling indicating a higher grade at 5-6 o'clock. The entire transition zone was inspected with the colposcope. This being completed, a total of 10 mL of 1% lidocaine with 1:100,000 epinephrine was injected at the 12, 5, and 7 o'clock position of the cervix and the loop electrocautery was set at 60 pure cut. The ectocervix was excised, labeled at 12 o'clock, and sent to Pathology. A smaller specimen was taken from the endocervix in a similar fashion. This actually ended up being open at 6 o'clock. Endocervical curettage was then performed and collected with Cytobrush and sent as a separate specimen. The base was then cauterized with ball-tip coag set at 60 cautery and then Monsel's was applied. The cervix was completely hemostatic. All of the instruments were removed from the vagina. Final sponge, needle, and instrument counts were reported as correct. There were no known complications. The patient was transferred to recovery in good condition. CIARAN LOPEZ /[id number]
== END 2019-04-05 09:58 | disposition home or self-care (01) ==
LOC: MW.SDS 06:29
PROVIDERS: ATTEND Obstetrics & Gynecology
DX: N87.1 Moderate cervical dysplasia (principal); E10.9 Type 1 diabetes mellitus without complications; F17.220 Nicotine dependence, chewing tobacco, uncomplicated; Z91.018 Allergy to other foods; Z79.899 Other long term (current) drug therapy
CPT/HCPCS: 36415; 57456; 57460; 82962; 84702; 85027; J2001; J2250; J2704; J3010; J3490; 88305; 88307

== ENCOUNTER → 2020-10-30 | Emergency (ER) | payer BC ==
[~2020-10-30] MED LIST: ALTEPLASE IV ONE; Sodium Chloride 0.9% 10 ML Syringe FLUSH PRN; Sodium Chloride 0.9% 2.5 ML Syringe FLUSH PRN
--- NOTE | 2020-10-30 14:17 | EDM.PDOC ---
ED HPI GENERAL MEDICAL PROBLEM - General Chief Complaint: Neuro Symptoms/Deficits Stated Complaint: EMS Time Seen by Provider: 10/30/20 14:05 - History of Present Illness INITIAL COMMENTS - FREE TEXT/NARRATIVE: History of present illness: [] This 30-year-old female was getting in the shower 1 PM when she lost use of the left side and developed facial droop. She felt dizzy at that time. She has no headache. The patient is a diabetic and a smoker. EMS identified 1 PM as a time of onset of the stroke with a left hemiparesis facial droop and difficult speech. Review of systems: As per history of present illness and below otherwise all systems reviewed and negative. Past medical history: As per history of present illness and as reviewed below otherwise noncontributory. Surgical history: As per history of present illness and as reviewed below otherwise noncontributory. Social history: No reported history of drug or alcohol abuse. Family history: As per history of present illness and as reviewed below otherwise noncontributory. Physical exam: Constitutional - well developed, well-nourished and in no acute distress HEENT - normocephalic, no evidence of trauma - external nose and mouth normal - no mass in neck and no JVD - mucosae moist EYES - full EOM, PERRL, no icterus - no evidence of inflammation, injection, or drainage Respiratory - no respiratory distress, equal bilateral expansion, lungs clear to auscultation and no abnormal lung sounds Cardiovascular - Regular Rhythm with S1 and S2 appreciated and no murmur, gallop or rub. GI - abdomen soft without distension or organomegaly - normal bowel sounds - no guard or rebound Musculoskeletal no gross deformity of long bones or joints - no tenderness, swelling or edema Neurologic - Alert and oriented times four -left facial droop, does not resist gravity more than 5 to 8 seconds with the left arm and left leg. The patient is full extraocular motion and visual damon intact. The patient has no sensory deficit on initial exam. Psychiatric - appropriate mood and affect with normal thought content Hematologic - No petechiae or purpura - mucosa appropriate color and sclera not pale - normal nail bed color and refill Integument - no rash or evidence of trauma - normal turgor Diagnostics: [] Therapeutics: [] Impression: [] Plan: [] Definitive disposition and diagnosis as appropriate pending reevaluation and review of above. - Related Data Allergies Allergy/AdvReac Type Severity Reaction Status Date / Time avocado Allergy "itchy Verified 10/30/20 14:25 mouth" banana Allergy "itchy Verified 10/30/20 14:25 mouth" lettuce Allergy "itchy Verified 10/30/20 14:25 mouth" Home Meds: Home Meds Cyclobenzaprine [Flexeril] 10 mg PO ASDIRECTED PRN 10/30/20 [History] Diclofenac Submicronized [Diclofenac] 75 mg PO DAILY 10/30/20 [History] Past Medical History HEENT History: Reports: Impaired Vision, Other (See Below) Other HEENT History: wear glasses or contacts. 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: Musculoskeletal History: Reports: None Neurological History: Reports: Migraines Psychiatric History: Reports: None Endocrine/Metabolic History: Reports: Diabetes, Type I Hematologic History: Reports: None Immunologic History: Reports: None Oncologic (Cancer) History: Reports: None Dermatologic History: Reports: None - Infectious Disease History Infectious Disease History: Reports: Chicken Pox - Past Surgical History Head Surgeries/Procedures: Reports: None HEENT Surgical History: Reports: Tonsillectomy Cardiovascular Surgical History: Reports: None Respiratory Surgical History: Reports: None GI Surgical History: Reports: None Female Surgical History: Reports: None Endocrine Surgical History: Reports: None Neurological Surgical History: Reports: None Musculoskeletal Surgical History: Reports: None Oncologic Surgical History: Reports: None Dermatological Surgical History: Reports: None Social & Family History - Family History Family Medical History: No Pertinent Family History - Caffeine Use Caffeine Use: Reports: Coffee, Tea Other Caffeine Use: one cup coffee every day ED ROS GENERAL - Review of Systems Review Of Systems: Comprehensive ROS is negative, except as noted in HPI. ED EXAM, GENERAL - Physical Exam Exam: See Below Free Text/Narrative:: My physical exam is in the HPI Course - Vital Signs Text/Narrative:: [address]24 PM and read the CT and said it is negative for hemorrhage. Thinks will be pushed. I have spoken with Dr. Cerda at [facility] and the helicopter crew. The patient will receive thrombolytics at the infusion started and be helicopter transported to [place]. - Orders/Labs/Meds Orders: Active Orders 24 hr Category Date Time Status EKG 12 Lead [EKG Documentation Completion] [RC] STAT Care 10/30/20 14:22 Active Chest 1V Frontal [CR] Stat Exams 10/30/20 14:11 Ordered Head wo Cont [CT] Stat Exams 10/30/20 14:10 Taken CBC WITH AUTO DIFF [HEME] Stat Lab 10/30/20 14:13 Received COMPREHENSIVE METABOLIC PN,CMP [CHEM] Stat Lab 10/30/20 14:13 Received HCG QUALITATIVE,SERUM [CHEM] Stat Lab 10/30/20 14:13 Received INR,PT,PROTHROMBIN TIME [COAG] Stat Lab 10/30/20 14:13 Received PTT,PARTIAL THROMBOPLSTIN TIME [COAG] Stat Lab 10/30/20 14:13 Received Sodium Chloride 0.9% [Saline Flush] Med 10/30/20 14:10 Active 10 ml FLUSH ASDIRECTED PRN Sodium Chloride 0.9% [Saline Flush] Med 10/30/20 14:10 Active 2.5 ml FLUSH ASDIRECTED PRN Saline Lock Insert [OM.PC] Stat Oth 10/30/20 14:10 Ordered Medication Orders Sodium Chloride (Sodium Chloride 0.9% 10 Ml Syringe) 10 ml FLUSH ASDIRECTED PRN PRN Reason: Keep Vein Open Sodium Chloride (Sodium Chloride 0.9% 2.5 Ml Syringe) 2.5 ml FLUSH ASDIRECTED PRN PRN Reason: Keep Vein Open Meds: Medications Generic Name Dose Route Start Last Admin Trade Name Freq PRN Reason Stop Dose Admin Sodium Chloride 10 ml 10/30/20 14:10 Sodium Chloride 0.9% 10 Ml Syringe FLUSH ASDIRECTED PRN Keep Vein Open Sodium Chloride 2.5 ml 10/30/20 14:10 Sodium Chloride 0.9% 2.5 Ml Syringe FLUSH ASDIRECTED PRN Keep Vein Open Departure - Departure Time of Disposition: 14:45 Disposition: DC/Tfer to Acute Hospital 02 Condition: Fair Clinical Impression: Cerebrovascular accident (CVA) - Discharge Information Forms: ED Department Discharge - My Orders Last 24 Hours: My Active Orders 10/30/20 14:10 Sodium Chloride 0.9% [Saline Flush] 10 ml FLUSH ASDIRECTED PRN Sodium Chloride 0.9% [Saline Flush] 2.5 ml FLUSH ASDIRECTED PRN Saline Lock Insert [OM.PC] Stat 10/30/20 14:11 Chest 1V Frontal [CR] Stat 10/30/20 14:13 CBC WITH AUTO DIFF [HEME] Stat COMPREHENSIVE METABOLIC PN,CMP [CHEM] Stat HCG QUALITATIVE,SERUM [CHEM] Stat INR,PT,PROTHROMBIN TIME [COAG] Stat PTT,PARTIAL THROMBOPLSTIN TIME [COAG] Stat 10/30/20 14:22 EKG 12 Lead [EKG Documentation Completion] [RC] STAT - Assessment/Plan Last 24 Hours: My Active Orders 10/30/20 14:10 Sodium Chloride 0.9% [Saline Flush] 10 ml FLUSH ASDIRECTED PRN Sodium Chloride 0.9% [Saline Flush] 2.5 ml FLUSH ASDIRECTED PRN Saline Lock Insert [OM.PC] Stat 10/30/20 14:11 Chest 1V Frontal [CR] Stat 10/30/20 14:13 CBC WITH AUTO DIFF [HEME] Stat COMPREHENSIVE METABOLIC PN,CMP [CHEM] Stat HCG QUALITATIVE,SERUM [CHEM] Stat INR,PT,PROTHROMBIN TIME [COAG] Stat PTT,PARTIAL THROMBOPLSTIN TIME [COAG] Stat 10/30/20 14:22 EKG 12 Lead [EKG Documentation Completion] [RC] STAT
--- NOTE | 2020-10-30 14:25 | CT ---
Indication: Right-sided weakness. Stroke protocol. Technique: CT of the head without contrast. Coronal and sagittal reformats. Bone and soft tissue windows. Comparison: No prior studies available for comparison at this institution. Findings: No acute intracranial hemorrhage or extra-axial collection. No evidence of acute cortical infarction. No mass effect or midline shift. Normal cerebral volume. The ventricles are normal in size, shape and contour. There is normal kennedy and white matter differentiation. The orbital contents are normal. No calvarial fractures. No lytic or sclerotic osseous lesions within the calvarium or skull base. Scalp and other imaged soft tissue structures are normal. Mastoid air cells are clear. Mild mucosal thickening in the right maxillary sinus. Impression: No acute intracranial abnormality. Please note that all CT scans at this facility use dose modulation, iterative reconstruction, and/or weight-based dosing when appropriate to reduce radiation dose to as low as reasonably achievable. Dictated by Nabil Mcconnell MD @ Oct 30 2020 2:20PM Signed by Dr. Nabil Mcconnell @ Oct 30 2020 2:24PM
[2020-10-30 14:30] VITALS: BP 173/83; PULSE 89
[2020-10-30 15:04] LABS: BLOOD UREA NITROGEN,BUN 15 mg/dL (7.0-18.0); CARBON DIOXIDE,CO2 23.1 mmol/L (21.0-32.0); CHLORIDE,CL 101 mmol/L (98-107); GLUCOSE RANDOM 242 mg/dL (74-106); POTASSIUM,K 3.5 mmol/L (3.5-5.1); SODIUM,NA 135 mmol/L (136-145)
--- NOTE | 2020-10-30 15:28 | CR ---
INDICATION: Stroke code. TECHNIQUE: Chest 1 view Comparison: None Findings: Cardiomediastinal silhouette is unremarkable. No focal lung consolidation, pleural effusion or pneumothorax. Bones are unremarkable. Impression: No acute cardiopulmonary abnormality. Dictated by Nabil Flores MD @ Oct 30 2020 3:25PM Signed by Dr. Nabil Flores @ Oct 30 2020 3:26PM
== END ==
LOC: MW.ED 14:03
DX: I63.9 Cerebral infarction, unspecified (principal); Z91.018 Allergy to other foods; E10.9 Type 1 diabetes mellitus without complications
CPT/HCPCS: 36415; 70450; 71045; 80053; 84703; 85025; 85610; 85730; 93005; 96374; 99285; J2997; 93010; 99284